=== PATIENT | female | born 1980 | race Two or more races ===

== ENCOUNTER 2018-02-26 16:52 | Emergency (ER) ==
--- NOTE | 2018-02-26 19:01 | NUR ---
NO RESPONSE FROM [facility] AFTER 3 CALL BACKS, CALL PLACED TO NUMBER ON FILE. SPOKE WITH REBECCA, WHO IS CURRENLY AT [facility] BEING TREATED. DR. VARGAS INFORMED.
== END 2018-02-26 19:04 | disposition left against medical advice (07) ==
LOC: ER 16:52
DX: R42 Dizziness and giddiness (principal); Z53.21 Procedure and treatment not carried out due to patient leaving prior to being seen by health care provider